=== PATIENT | female | born 1995 | race Caucasian/White ===

== ENCOUNTER 2021-12-24 05:47 | Inpatient (IN) | payer OTHER ==
[2021-12-24] MEDS ORDERED: TERBUTALINE 1 MG/ML VIAL SQ PRN (06:00)
[2021-12-24] MEDS ORDERED: OXYTOCIN 30 UNITS/500 ML NS 30 UNIT in SALINE 1 500ML.BAG IV SCH ×2 (06:00→11:28)
[2021-12-24] MEDS ORDERED: CARBOPROST TROMETHAMINE 250 MCG/ML 1 ML AMP IM PRN (06:00)
[2021-12-24] MEDS ORDERED: METHYLERGONOVINE 0.2 MG/ML 1 ML AMP IM PRN (06:00)
[2021-12-24] MEDS ORDERED: AMPICILLIN 2,000 MG in SODIUM CHLORIDE 0.9% 100 ML IVPB STA (06:00)
[2021-12-24] MEDS ORDERED: OXYTOCIN 10 UNIT/ML 1 ML VIAL IM PRN (06:00)
[2021-12-24] MEDS ORDERED: LIDOCAINE 0.5% (PF) 5 MG/ML (50 ML SDV) SQ PRN (06:00)
[2021-12-24] MEDS: LACTATED RINGERS 1,000 ML IV SCH ×2 (06:26→08:26)
--- NOTE | 2021-12-24 06:28 | P.HPOB ---
History of Present Illness H&P Date: 12/24/21 Chief Complaint: Requested induction of labor This patient is a pleasant 26-year-old 2 para 1 female estimated date of confinement 12/27/2021 estimated gestational age 39-4/7 weeks gestation admitted to labor and delivery for requested induction of labor. Patient's care has been uncomplicated. She did have a low-lying placenta/previa early in the however this completely resolved. We have also been following her for growth and most recent ultrasound showed baby 7 lbs. 12 oz. Patient is now requesting induction of labor. 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 Past Anesthesia/Blood Transfusion Reactions: No Reported Reaction Past Psychological History: Anxiety, Depression Smoking Status: Never smoker Past Alcohol Use History: None Reported Past Drug Use History: None Reported Medications and Allergies Home Medications Medication Instructions Recorded Confirmed Type Aspirin [Adult Low Dose Aspirin EC] 81 mg PO DAILY 12/24/21 12/24/21 History Pnv No.95/Ferrous Fum/Folic AC 1 each PO DAILY 12/24/21 12/24/21 History [ Multivitamin Tablet] Allergies Allergy/AdvReac Type Severity Reaction Status Date / Time No Known Allergies Allergy Verified 12/24/21 06:00 Exam Vital Signs Temp Pulse Resp BP Pulse Ox 12/24/21 06:02 97.4 F L 84 18 129/79 100 Intake and Output 12/23/21 12/23/21 12/24/21 14:59 22:59 06:59 Other: # Voids 1 Weight 81.647 kg - OBG Physical Exam Abdomen: bowel sounds normal, no diffuse tenderness, no bruit present, no guarding noted, no hepatomegaly, no splenomegaly, no mass Vulva: both: normal Vagina: normal moisture, no discharge Cervix: no lesion (Cervix is 3 cm that a 50% effaced -2 station), no discharge Uterus: enlarged (Fundal height 38 cm) Results blood work shows she is A positive, rubella immune, RPR nonreactive, HIV is nonreactive, hepatitis B is negative, Glucola was abnormal with a normal three-hour gtt., group B strep was negative however she did have a history of positive with her first . Most recent ultrasound shows 7 lbs. 12 oz. Assessment and Plan Assessment: This is a pleasant 26-year-old 2 para 1 female 39-4/7 weeks gestation who presents to labor and delivery for requested induction of labor. Plan is induction of labor and anticipate vaginal delivery. Patient does have a history of positive strep previous although she is negative this therefore she will receive prophylactic antibiotics. (1) 39 weeks gestation of Current Visit: Yes Status: Acute Code(s): Z3A.39 - 39 WEEKS GESTATION OF SNOMED Code(s): 17996761 (2) Elective induction of labor planned Current Visit: Yes Status: Acute Code(s): [id number] - SNOMED Code(s): 920582027
[2021-12-24 07:16] LABS: Basophils % (A) 0 %; Eosinophils # (A) 0.2 k/uL (0-0.7); Eosinophils % (A) 2 %; HCT 31.5 % (34.0-46.0); HGB 10.6 gm/dL (11.4-16.0); Lymphocytes # (A) 1.4 k/uL (1.0-4.8); Lymphocytes % (A) 17 %; MCH 29.5 pg (25.0-35.0); MCHC 33.5 g/dL (31.0-37.0); MCV 88.1 fL (80.0-100.0); Monocytes # (A) 0.4 k/uL (0-1.0); Monocytes % (A) 4 %; Neutrophils % (A) 75 %; Platelet Count 116 k/uL (150-450); RBC 3.58 m/uL (3.80-5.40); RDW 12.6 % (11.5-15.5)
[2021-12-24] MEDS ORDERED: AMPICILLIN 1,000 MG in SODIUM CHLORIDE 0.9% 50 ML IVPB SCH (10:30)
[2021-12-24] MEDS ORDERED: HYDROCORTISONE 2.5% RECTAL CREAM 30 GM TUBE RECTAL PRN (11:28)
[2021-12-24] MEDS ORDERED: BENZOCAINE/MENTHOL SPRAY 1 GM/SPRAY AEROSOL TOPICAL PRN (11:28)
[2021-12-24] MEDS ORDERED: LANOLIN CREAM 5 GM TUBE TOPICAL PRN (11:28)
[2021-12-24] MEDS ORDERED: ACETAMINOPHEN TAB 325 MG TAB PO PRN (11:28)
[2021-12-24] MEDS ORDERED: ZOLPIDEM 5 MG TAB PO PRN (11:28)
[2021-12-24] MEDS ORDERED: SIMETHICONE 80 MG CHEWABLE PO PRN (11:28)
[2021-12-24] MEDS ORDERED: diphenhydrAMINE 25 MG CAP PO PRN (11:28)
[2021-12-24] MEDS ORDERED: bisacodyL 10 MG SUPP RECTAL PRN (11:28)
[2021-12-24] MEDS ORDERED: diphenhydrAMINE 50 MG/ML 1 ML VIAL IVP PRN (11:28)
[2021-12-24] MEDS: SENNOSIDES-DOCUSATE SODIUM 1 EACH TAB PO SCH ×2 (12:34→21:21)
--- NOTE | 2021-12-24 17:40 | P.PROBDLV ---
Vaginal Delivery Note - . Vaginal Delivery Note: Normal vaginal delivery viable female Apgars 8 and 9 delivery time was 1109 hrs. Please see dictated H&P for intimate details of this patient's admission. Brief summary this is a pleasant 26-year-old 2 para 1 female 39-4/7 weeks gestation admitted to labor and delivery for requested induction of labor. On admission patient is 3 cm dilated is artificial rupture membranes for clear fluid. Labor is induced with Pitocin per protocol. Labor progresses and she does get an epidural with good relief. Patient gets to complete pushes the head to the perineum. Posterior perineum is supported we have controlled delivery of the 's head over the intact perineum. 's head is right occiput anterior presentation. Mouth and nares are bulb suctioned. There is no evidence of nuchal cord. With gentle downward traction we then have deliver the anterior and posterior shoulder and rest this infant's body. This is a vigorous viable female infant Apgars are 8 and 9 delivery time was 1109 hrs. After delivery of the the umbilical cords immediately clamped and cut due to history of jaundice. The is then laid on the mother's abdomen. The placenta is then spontaneously delivered intact. Inspection of the perineum shows a first-degree laceration which is reapproximated 3-0 Vicryl. Noted I did put additional [id number] stitch in for some added hemostasis. Excellent reapproximation is noted. All counts are correct 3. There are no complications. Infant and mother stable delivery room.
[2021-12-24] MEDS: IBUPROFEN 600 MG TAB PO PRN (18:52)
[2021-12-25 06:24] LABS: Basophils % (A) 0 %; Eosinophils # (A) 0.2 k/uL (0-0.7); Eosinophils % (A) 2 %; HCT 31.7 % (34.0-46.0); HGB 10.6 gm/dL (11.4-16.0); Lymphocytes # (A) 1.7 k/uL (1.0-4.8); Lymphocytes % (A) 15 %; MCH 29.6 pg (25.0-35.0); MCHC 33.6 g/dL (31.0-37.0); MCV 88.3 fL (80.0-100.0); Mean Platelet Volume 10.1; Monocytes # (A) 0.5 k/uL (0-1.0); Monocytes % (A) 4 %; Neutrophils # (A) 8.9 k/uL (1.3-7.7); Neutrophils % (A) 78 %; Platelet Count 114 k/uL (150-450); RBC 3.59 m/uL (3.80-5.40); RDW 12.6 % (11.5-15.5); WBC 11.4 k/uL (3.8-10.6)
--- NOTE | 2021-12-25 06:30 | P.PNOBGVD ---
Subjective - Subjective Patient reports: Reports appetite normal, Reports voiding normally, Reports pain well controlled, Reports ambulating normally : doing well Objective - Latest Vital Signs Latest vital signs: Vital Signs Temp Pulse Resp BP Pulse Ox 12/25/21 00:00 97.6 F 70 16 120/75 98 12/24/21 20:00 97.3 F L 70 16 132/80 98 12/24/21 16:00 97.9 F 89 18 128/78 97 12/24/21 13:20 98 F 80 18 113/58 99 12/24/21 12:50 78 18 119/61 98 12/24/21 12:20 97.8 F 68 18 117/63 99 12/24/21 12:05 75 18 118/63 99 12/24/21 11:50 81 18 122/59 12/24/21 11:35 97.9 F 90 18 151/69 12/24/21 11:20 76 18 124/60 Intake and Output 12/24/21 12/24/21 12/25/21 14:59 22:59 06:59 Intake Total 176.6 Output Total 150 Balance 26.6 Intake: Intake, IV Titration 176.6 Amount Oxytocin 30 Units/500 ml 176.6 Ns 30 unit In Saline 1 500ml.bag @ Per Protocol IV .Q0M [facility] Rx#:[id number] Output: Output, Quantitative 150 Blood Loss Other: # Voids 2 2 - Exam Lungs: bilateral: normal Chest: Normal S1, Normal S2 Extremities: Present: normal Abdomen: Present: normal appearance, soft Uterus: Present: normal, firm - Labs Labs: Abnormal Lab Results - Last 24 Hours (Table) 12/24/21 12/25/21 Range/Units 06:50 06:06 WBC 11.4 H (3.8-10.6) k/uL RBC 3.58 L 3.59 L (3.80-5.40) m/uL Hgb 10.6 L 10.6 L (11.4-16.0) gm/dL Hct 31.5 L 31.7 L (34.0-46.0) % Plt Count 116 L 114 L (150-450) k/uL Neutrophils # 8.9 H (1.3-7.7) k/uL Assessment and Plan Assessment: day #1. Patient is resting without complaints wishes to go home. Vital signs are stable she's afebrile. Uterus is firm nontender she is having normal lochia. My impression this is a normal course. Plan is to continue routine care discharge home later today. (1) 39 weeks gestation of Current Visit: Yes Status: Acute Code(s): Z3A.39 - 39 WEEKS GESTATION OF SNOMED Code(s): 63918540 (2) Elective induction of labor planned Current Visit: Yes Status: Acute Code(s): BXO0733 - SNOMED Code(s): 217209466
--- NOTE | 2021-12-25 06:33 | P.DS ---
Providers Date of admission: 12/24/21 05:47 Expected date of discharge: 12/25/21 Attending physician: Inder Brown Primary care physician: Stated None - Discharge Diagnosis(es) (1) 39 weeks gestation of Current Visit: Yes Status: Acute (2) Elective induction of labor planned Current Visit: Yes Status: Acute Hospital Course: Please see dictated H&P for intimate details of this patient's admission. Brief summary is a pleasant 26-year-old 2 para 1 female 39-4/7 weeks gestation admitted to labor and delivery for requested induction of labor. Patient is admitted she is uncomplicated induction of labor goes on have a vaginal delivery viable female infant. Please see dictated delivery note. day #1 patient's wish to go home. Patient's felt be stable for discharge home follow up with me in 6 weeks Procedures: Induction of labor normal vaginal delivery Patient Condition at Discharge: Good Plan - Discharge Summary New Discharge Prescriptions: New Ibuprofen [Motrin] 600 mg PO Q6HR PRN #30 tab PRN Reason: Mild Pain (Scale 1 To 3) No Action Aspirin [Adult Low Dose Aspirin EC] 81 mg PO DAILY Pnv No.95/Ferrous Fum/Folic AC [ Multivitamin Tablet] 1 each PO DAILY Discharge Medication List Aspirin [Adult Low Dose Aspirin EC] 81 mg PO DAILY 12/24/21 [History] Pnv No.95/Ferrous Fum/Folic AC [ Multivitamin Tablet] 1 each PO DAILY 12/24/21 [History] Ibuprofen [Motrin] 600 mg PO Q6HR PRN #30 tab 12/25/21 [Rx] Follow up Appointment(s)/Referral(s): Inder Brown MD [STAFF PHYSICIAN] - 02/04/22 11:15 am Patient Instructions/Handouts: Vaginal Delivery (DC) Activity/Diet/Wound Care/Special Instructions: No intercourse or anything per vagina for 6 weeks. Please call if any fever, chills, excessive vaginal bleeding, and/or abdominal pain. Discharge Disposition: HOME SELF-CARE
[2021-12-25] MEDS: IBUPROFEN 600 MG TAB PO PRN ×2 (08:44→20:25)
[2021-12-25] MEDS: SENNOSIDES-DOCUSATE SODIUM 1 EACH TAB PO SCH ×2 (08:44→20:24)
[2021-12-26] MEDS: IBUPROFEN 600 MG TAB PO PRN ×2 (05:55→10:47)
--- NOTE | 2021-12-26 06:19 | P.PNOBGVD ---
Subjective - Subjective Patient reports: Reports appetite normal, Reports voiding normally, Reports pain well controlled, Reports ambulating normally : doing well Objective - Latest Vital Signs Latest vital signs: Vital Signs Temp Pulse Resp BP Pulse Ox 12/26/21 00:00 97.7 F 58 L 18 109/72 98 12/25/21 16:00 97.9 F 67 18 135/72 98 12/25/21 09:19 97.7 F 73 22 107/67 98 12/25/21 08:00 97.7 F 73 20 107/67 98 Intake and Output 12/25/21 12/25/21 12/26/21 14:59 22:59 06:59 Output Total 2 2 2 Balance -2 -2 -2 Output: Urine 2 2 2 - Exam Lungs: bilateral: normal Chest: Normal S1, Normal S2 Extremities: Present: normal Abdomen: Present: normal appearance, soft Uterus: Present: normal, firm - Labs Labs: Abnormal Lab Results - Last 24 Hours (Table) 12/25/21 Range/Units 06:06 WBC 11.4 H (3.8-10.6) k/uL RBC 3.59 L (3.80-5.40) m/uL Hgb 10.6 L (11.4-16.0) gm/dL Hct 31.7 L (34.0-46.0) % Plt Count 114 L (150-450) k/uL Neutrophils # 8.9 H (1.3-7.7) k/uL Assessment and Plan Assessment: day #2. Patient is resting without new complaints. She was going to go home yesterday however her baby developed some jaundiced require treatment. Patient continues to well from a standpoint plan today is to continue routine care discharge home later today. (1) 39 weeks gestation of Current Visit: Yes Status: Acute Code(s): Z3A.39 - 39 WEEKS GESTATION OF SNOMED Code(s): 13301253 (2) Elective induction of labor planned Current Visit: Yes Status: Acute Code(s): [id number] - SNOMED Code(s): 791681797
[2021-12-26 09:43] VITALS: RESP 16
[2021-12-26] MEDS: SENNOSIDES-DOCUSATE SODIUM 1 EACH TAB PO SCH (10:47)
[2021-12-26 12:56] VITALS: BP 117/78; PULSE 83; TEMP 97.8
[2021-12-28] MEDS ORDERED: ROPIVACAINE 100 MG, fentaNYL (PF). 200 MCG in SODIUM CHLORIDE 0.9% 76 ML EPIDURAL ONE (10:50)
== END 2021-12-26 15:11 | disposition home or self-care (01) | DRG 807 ==
LOC: 4FBP 05:47
PROVIDERS: ADMIT Obstetrics & Gynecology; ATTEND Obstetrics & Gynecology
DX: O70.0 First degree perineal laceration during delivery (principal); Z37.0 Single live birth; Z3A.39 39 weeks gestation of pregnancy; Z28.310 Unvaccinated for COVID-19; Z79.82 Long term (current) use of aspirin; Z79.899 Other long term (current) drug therapy; Z86.59 Personal history of other mental and behavioral disorders
CPT/HCPCS: 85025; 86850; 86900; 86901

== ENCOUNTER → 2022-12-03 | Outpatient (CLI) | payer OTHER ==
--- NOTE | 2022-12-03 16:10 | USB ---
Reason for Exam: Clinical finding. Technique: Method: Whole Breast Handheld. Findings: The whole breast of the right breast, the area of palpable concern of the right breast, the axilla of the right breast and the retroareolar of the right breast were scanned. A complete US of all four quadrants of the breast , axilla, and retro-areolar region were reviewed. At the 12:00 position, 4 cm from the nipple, there is an oval isoechoic, minimally lobulated lesion measuring 2.3 x 2.1 x 1.0 cm. No internal vascularity. No posterior shadowing. Possible fibroadenoma or lipoma for which six-month follow-up is recommended. *At the 6:00 position, 3 cm from the nipple, corresponding to the palpable site, there is a large lobulated heterogeneous mass measuring 3.8 x 3.3 x 1.6 cm for which tissue sampling is recommended. The patient reports having a palpable area here for some years by increase in size recently. At the 7:00 position, 3 cm from the nipple, there is a nonspecific oval, circumscribed 8 x 7 x 5 mm mass with posterior through transmission, possible fibroadenoma that should be reassessed in 6 months. No other solid or cystic lesion or axillary lymphadenopathy. Overall Assessment: Suspicious, BI-RAD 4 Management: Ultrasound Core Biopsy of the left breast. 6:00, dominant 3.8 cm lobulated, palpable mass. Possible fibroadenoma, phyllodes, or lactating adenoma. Other etiologies not excluded at this time. Six-month follow-up ultrasound for the 12:00 and 7:00 areas. Results were given to the patient verbally at the time of exam. Electronically signed and approved by: Nathaly Gage M.D. Radiologist
== END | disposition home or self-care (01) ==
LOC: RADUSWWP 15:02
PROVIDERS: ATTEND Obstetrics & Gynecology
DX: N63.10 Unspecified lump in the right breast, unspecified quadrant (principal)

== ENCOUNTER → 2022-12-16 | Day surgery (SDC) | payer OTHER ==
--- NOTE | 2022-12-22 09:05 | USB ---
Prior Study Comparison: 12/03/2022 Right US breast RT, [facility]. Pathology Description: Location: 6 o'clock. Marker Left Behind. Needle Type: Mammotome Cores: 5 Gauge: 13 The procedure of ultrasound guided core biopsy was explained to the patient. Benefits, alternatives, and risks were discussed. An informed consent was then obtained. The patient was placed in supine positioning for imaging and for the procedure. The overlying skin was prepped and draped in usual sterile fashion. Lidocaine with epinephrine was used as anesthetic into the skin and subcutaneous tissue up to area of concern in the right breast. Under ultrasound guidance, a 12-gauge vacuum assisted biopsy gun device was used to obtain 5 core samples. Following this, a biopsy clip (Cl[place] coil) was left in lesion. The patient tolerated the procedure well without any immediate complication. The patient was kept in the radiology department for short stay after the procedure and then discharged home in stable condition. Postprocedure mammogram was not performed due to patient's age. Impression: Successful, uncomplicated ultrasound guided core biopsy of area of concern in the right breast, full pathology results to follow. Pathology Results: Result: Benign. RIGHT BREAST, SIX O'CLOCK POSITION, ULTRASOUND GUIDED CORE BIOPSY: Fibrous stromal proliferation with compressed glands and focal nodular ductal areas having change (see note). Negative for diagnostic in situ or invasive carcinoma. Notes It is noted the patient has imaging evidence of a lobulated 3.8 cm mass present at the 6 o'clock position of the right breast 3 cm from the nipple. The differential diagnosis includes a fibroadenoma with change verses a lactating adenoma verses a fibrous scar with focal change. No diagnostic features of malignancy are seen within the current specimen. Overall Assessment: Benign Management: Diagnostic Breast Ultrasound of the right breast in 6 months. Electronically signed and approved by: Aaron Baires D.O.
== END ==
LOC: RADUSWWP 07:49
PROVIDERS: ATTEND Surgery
DX: D24.1 Benign neoplasm of right breast (principal)
CPT/HCPCS: 88305; 19083; A4648

== ENCOUNTER 2023-01-07 11:43 | Day surgery (SDC) | payer OTHER ==
[~2023-01-07 11:43] MED LIST: ACETAMINOPHEN TAB 500 MG TAB PO PRN; DEXAMETHASONE SOD PHOSPHATE 4 MG/ML 1 ML VIAL IV ONE; HEPARIN SODIUM,PORCINE/PF 5,000 UNIT/0.5 ML SYRINGE SQ PRN; HYDROmorphone 0.5 MG/0.5 ML SYRINGE IVP PRN; LACTATED RINGERS 1,000 ML IV SCH; LIDOCAINE 1% (10MG/ML) FOR IV START INTRADERMA PRN; MIDAZOLAM 2 MG/2 ML VIAL IV PRN; ONDANSETRON 4 MG/2 ML VIAL IVP ONE
[2023-01-07] MEDS ORDERED: SCOPOLAMINE 1 MG/72 HR PATCH TRANSDERM ONE (12:32)
[2023-01-07] MEDS ORDERED: diphenhydrAMINE 50 MG/ML 1 ML VIAL ONE (12:55)
[2023-01-07] MEDS ORDERED: MIDAZOLAM 2 MG/2 ML VIAL ONE (12:55)
[2023-01-07] MEDS ORDERED: PROPOFOL 10 MG/ML 20 ML VIAL IV ONE (12:55)
[2023-01-07] MEDS ORDERED: fentaNYL (PF) 50 MCG/ML 2 ML AMP ONE (12:55)
[2023-01-07] MEDS ORDERED: BUPIVACAINE (PF) 0.25% 30 ML VIAL SQ ONE (13:21)
[2023-01-07] MEDS ORDERED: ACETAMINOPHEN TAB 325 MG TAB PO PRN (13:56)
[2023-01-07] MEDS ORDERED: NALOXONE 0.4 MG/ML 1 ML VIAL IV PRN (13:56)
--- NOTE | 2023-01-07 13:59 | P.OP ---
Date of Procedure: 01/07/23 Procedure(s) Performed: PREOPERATIVE DIAGNOSIS: Right breast mass POSTOPERATIVE DIAGNOSIS: Same PROCEDURE: Excisional biopsy right breast SURGEON: Fany EBL: 10 mL ANESTHESIA: General plus local COMPLICATIONS: None OPERATIVE PROCEDURE: Patient was placed on the operating room table in the supine position. The patient's breast was prepped and draped in usual sterile fashion. A curvilinear incision was made adjacent to the areola between 3 and 6:00. The palpable mass was excised using electrocautery. Then to pathology. This measured 3.5 x 3 cm. The operative site was irrigated. The subcutaneous tissues were inspected. No bleeding was seen. The subcutaneous tissues were closed using 3-0 Vicryl sutures. The skin was closed using a running 4-0 Monocryl stitch. Skin glue and sterile dressings were applied. DISPOSITION: Stable to recovery room
[2023-01-07 14:09] VITALS: TEMP 97
[2023-01-07 14:55] VITALS: RESP 20
[2023-01-07 15:11] VITALS: BP 99/60; PULSE 64
== END 2023-01-07 15:19 ==
LOC: OR 11:43
PROVIDERS: ATTEND Surgery
DX: D24.1 Benign neoplasm of right breast (principal)
CPT/HCPCS: 19120; 81025; 88305; 88342; J2250; J1200; J1100; J0690; J2405; J3010; J2704; J1170; J1644

== ENCOUNTER → 2023-09-03 | Outpatient (CLI) | payer OTHER ==
--- NOTE | 2023-09-03 10:15 | USB ---
Reason for Exam: Clinical finding. Patient History: 12/16/2022, Benign US biopsy breast VAD RT on the right side. Technique: Method: Whole Breast Handheld. Findings: The whole breast of the right breast, the axilla of the right breast and the retroareolar of the right breast were scanned. A complete US of all four quadrants of the breast common axilla, and retro-areolar region were reviewed. The previous large fibroadenoma at the 6:00 position has been removed. There is an adjacent circumscribed, round mass which remains. Currently measures 1.5 x 1.1 x 1.0 cm, overall similar to 12/16/2022. There is posterior through transmission and an additional fibroadenoma is suggested. One-year surveillance follow-up can be performed. No other solid or cystic lesion or axillary adenopathy. Overall Assessment: Probably benign, BI-RAD 3 Management: Diagnostic Breast Ultrasound of the right breast in 1 year. If symptomatic, surgical excision can be considered. Results were given to the patient verbally at the time of exam. Electronically signed and approved by: Nathaly Gage M.D. Radiologist
== END | disposition home or self-care (01) ==
LOC: RADUSWWP 09:30
PROVIDERS: ATTEND Surgery
DX: N63.10 Unspecified lump in the right breast, unspecified quadrant (principal)